=== PATIENT | female | born 1955 | race Caucasian/White ===

== ENCOUNTER → 2020-09-15 | Outpatient (CLI) | payer MEDICARE ==
[~2020-09-15] MED LIST: METHACHOLINE KIT (J7674) INH ONE
--- NOTE | 2020-09-15 10:18 | PFTRPT ---
Height: 59.00 Inches Weight: 180.00 Lbs BSA: 1.76 Diagnosis: R06.02 DATE: 09/15/2020 ORDERING PHYSICIAN: Elise Victor NP Study has excellent technical quality, reasonable effort. Forced vital capacity is normal. FEV1 is in proportion. Obstructive index is therefore normal. Expiratory limit of the flow-volume loop is normal. Total lung capacity is normal. Residual volume is in proportion. Diffusing capacity is reduced but does correct for alveolar volume. Hemoglobin is acceptable at 13.5. Airway resistance and conductance are normal. IMPRESSION: Essentially normal study. MTDD
--- NOTE | 2020-09-15 10:59 | PFTRPT ---
Height: 59.00 Inches Weight: 180.00 Lbs BSA: 1.76 Diagnosis: R06.02 DATE: 09/15/2020 ORDERED BY: Elise Victor NP QUALITY: Study of excellent technical quality. PROCEDURE: Under protocol, methacholine was administered. At a dose of 2.5 mg or 13.875 CDUs, a 26% decline in the FEV1 was noted. PC of 0.99 is significant. Flow rates did return to baseline post bronchodilator administration. IMPRESSION: Positive methacholine challenge study. MTDD
== END ==
LOC: M CARPUL 09:32
PROVIDERS: ATTEND Nurse Practitioner Adult Health
DX: R06.02 Shortness of breath (principal)
CPT/HCPCS: 88738; 94010; 94070; 94726; 94729; 95070; J7674